=== PATIENT | female | born 1955 | race Hispanic/Latino ===

== ENCOUNTER 2024-02-09 08:35 | Outpatient (CLI) | payer MEDICARE ==
[2024-02-09 10:13] LABS: Hematocrit 39.6 % (34.9-44.5); Hemoglobin 12.8 g/dL (12.0-15.5); Mean Corpuscular HGB CONC 32.3 g/dL (32.0-36.0); Mean Corpuscular Hemoglobin 27.9 pg (27.0-33.0); Mean Corpuscular Volume 86.3 fL (81.6-98.3); Mean Platelet Volume 11.6 fL (7.4-10.4); Platelet Count 178 10x3/uL (150-450); RBC Distribution Width 13.6 % (11.5-14.5); Red Blood Cell (RBC) Count 4.59 10x6/uL (3.90-5.03); White Blood Cell (WBC) Count 3.9 10x3/uL (3.5-10.5)
== END 2024-02-09 08:36 | disposition home or self-care (01) ==
LOC: CSHLAB 08:35
PROVIDERS: ATTEND Surgery
DX: Z01.818 Encounter for other preprocedural examination (principal); C67.9 Malignant neoplasm of bladder, unspecified
CPT/HCPCS: 85027; 93005; 93010

== ENCOUNTER 2024-02-13 07:05 | Day surgery (SDC) | payer MEDICARE ==
[2024-02-09 09:13] VITALS: BMI 31.6
[2024-02-13] MEDS ORDERED: Bupivacaine HCl 0.5%/Epinephrine 1:200,000/PF 30 ml Vial ONE (09:44)
[2024-02-13] MEDS ORDERED: PROPOFOL 20 ML ONE (10:23)
[2024-02-13] MEDS ORDERED: Lidocaine 2% PF 5 ML VIAL ONE (10:23)
[2024-02-13] MEDS ORDERED: CEFAZOLIN 2 GM VIAL ONE (10:23)
[2024-02-13] MEDS ORDERED: Dexamethasone 20 MG/5 ML VIAL ONE (10:23)
[2024-02-13] MEDS ORDERED: Ondansetron PF 4 MG/2 ML Vial ONE (10:23)
[2024-02-13] MEDS ORDERED: fentaNYL 50 mcg/mL 1 mL Vial ONE (10:26)
== END 2024-02-13 12:10 | disposition home or self-care (01) ==
LOC: CSHSDC 07:05
PROVIDERS: ATTEND Surgery
PROC: 0JH60WZ Insertion of Totally Implantable Vascular Access Device into Chest Subcutaneous Tissue and Fascia, Open Approach (ICD-10-PCS; principal; 2024-02-13)
DX: C67.9 Malignant neoplasm of bladder, unspecified (principal); I10 Essential (primary) hypertension; E11.9 Type 2 diabetes mellitus without complications; E03.9 Hypothyroidism, unspecified; Z78.0 Asymptomatic menopausal state; Z79.890 Hormone replacement therapy; Z79.899 Other long term (current) drug therapy
CPT/HCPCS: 36561; 71045; J1100; J1642; J2405; J2704; J3010; A6258; C1788